=== PATIENT | female | born 1985 | race Caucasian/White ===

== ENCOUNTER 2016-10-30 08:45 | Day surgery (SDC) | payer BC ==
[~2016-10-30 08:45] MED LIST: IV START KIT ONE; LACTATED RINGERS 1,000 ML ONE
[2016-10-30] MEDS ORDERED: MIDAZOLAM HCL 1 MG/ML 2ML VIAL ONE (10:17)
[2016-10-30] MEDS ORDERED: PROPOFOL 20 ML IV ONE (10:17)
[2016-10-30] MEDS ORDERED: ONDANSETRON 4 MG/2ML 2 ML VIAL ONE (10:18)
[2016-10-30] MEDS ORDERED: FENTANYL 100 MCG/2 ML VIAL ONE ×2 (10:18→11:15)
[2016-10-30] MEDS ORDERED: DEXAMETHASONE SOD PHOS 4 MG/1 ML VIAL ONE (10:18)
[2016-10-30] MEDS ORDERED: LABETALOL HCL 5 MG/ML 20ML VIAL IV PRN (10:41)
[2016-10-30] MEDS ORDERED: HYDRALAZINE HCL 20 MG/1 ML VIAL IV PRN (10:41)
[2016-10-30] MEDS ORDERED: NALOXONE HCL 0.4 MG/ML VIAL IV PRN (10:41)
[2016-10-30] MEDS ORDERED: MEPERIDINE 25 MG/ML SYRINGE IV PRN (10:41)
[2016-10-30] MEDS ORDERED: ONDANSETRON 4 MG/2ML 2 ML VIAL IV PRN ×2 (10:41→12:05)
[2016-10-30] MEDS ORDERED: FENTANYL 100 MCG/2 ML VIAL IV PRN (10:41)
[2016-10-30] MEDS ORDERED: HYDROMORPHONE HCL 1 MG/ML SYRINGE IV PRN (10:41)
[2016-10-30] MEDS ORDERED: ATROPINE SULFATE 0.4 MG/1 ML VIAL IV PRN (10:41)
[2016-10-30] MEDS ORDERED: PROMETHAZINE HCL 25 MG/ML VIAL IM PRN (10:41)
[2016-10-30] MEDS ORDERED: LACTATED RINGERS 1,000 ML IV SCH ×2 (10:45→12:05)
[2016-10-30] MEDS ORDERED: CEFAZOLIN SODIUM 1,000 MG VIAL ONE (11:07)
[2016-10-30] MEDS ORDERED: LACTATED RINGERS 1,000 ML ONE (11:45)
[2016-10-30] MEDS ORDERED: MISOPROSTOL 200 MCG TABLET ONE (11:46)
[2016-10-30] MEDS ORDERED: KETOROLAC TROMETHAMINE 30 MG/ML 1 ML VIAL IV PRN (12:05)
[2016-10-30] MEDS ORDERED: OXYCODONE/ACETAMINOPHEN 5/325 MG TABLET PO PRN (12:05)
[2016-10-30] MEDS ORDERED: OXYCODONE/ACETAMINOPHEN 5/325 MG TABLET ONE (12:33)
[2016-10-30 12:36] LABS: HEMATOCRIT 27.8 % (37.0-47.0); HEMOGLOBIN 9.7 gm/l (12.0-16.0)
--- NOTE | 2016-10-30 16:41 | HP ---
JOSEPHINE JOHN [id number] DATE OF PROCEDURE: 10/30/2016 PREOPERATIVE DIAGNOSIS: Missed at 9 weeks of gestation. PROCEDURE: SUCTION DILATATION AND CURETTAGE. SURGEON: Dr. Albaro Blank HISTORY OF PRESENT ILLNESS: The patient is a 30-year-old G-2, P-1 who presented for initial obstetric visit, however, upon initial evaluation was noted to have a nine week gestation with no heart activity. This was confirmed with ultrasound at diagnostic imaging. Ultrasound showed a nine week plus one day gestation by [id number] length. The patient presents for suction dilatation and curettage today. PAST OBSTETRICAL HISTORY: The patient had one normal vaginal delivery. PAST MEDICAL HISTORY: Negative. PAST SURGICAL HISTORY: [place] teeth. ALLERGIES: The patient has allergy to dicloxacillin, however, can tolerate Keflex. PHYSICAL EXAMINATION: GENERAL: The patient is in no apparent distress. HEART: Regular rate and rhythm. LUNGS: Clear to auscultation bilaterally. ABDOMEN: Nontender and nondistended. Uterus is anteverted and consistent with nine weeks gestation. Cervix is closed. EXTREMITIES: Exam is normal. ASSESSMENT/PLAN: This is a 30-year-old with nine weeks gestation and missed . The patient opts for suction dilatation and curettage. The procedure, indications and risks have been reviewed, including the risks of bleeding, infection and uterine perforation. Preoperative instructions and postoperative expectations have been reviewed. The patient's blood type is confirmed A+.
--- NOTE | 2016-10-31 00:32 | OP ---
JOSEPHINE JOHN [id number] DATE OF PROCEDURE: 10/30/2016 PREOPERATIVE DIAGNOSIS: Missed at nine weeks. POSTOPERATIVE DIAGNOSIS: Missed at nine weeks. PROCEDURE: Suction dilation and curettage. SURGEON: Dr. Albaro Blank ANESTHESIA: General. ESTIMATED BLOOD LOSS: 400 cc OPERATIVE FINDINGS: Include products of conception and retroverted nine week size uterus. COMPLICATIONS: None. OPERATIVE COURSE: The patient is taken to the OR and placed under general anesthesia. The patient was placed in lithotomy and prepped and draped in a sterile fashion. The bladder was emptied with a straight catheter. A weighted speculum was then placed and the cervix was grasped with a single-tooth tenaculum. The cervix was sequentially dilated to accommodate a #9 suction curette. The #9 straight curette was then placed into the fundus and using a rotating motion was slowly withdrawn. This was able to withdraw some tissue at this time. Subsequently, a second curettage did not retrieve any additional tissue. The uterus was then gently curetted, and no more tissue was withdrawn at this time, and there is no evidence of perforation. The second round of suction curettage was then performed and the uterus was gently massaged. At this point, another round of gentle sharp curettage did not retrieve any further tissue, and again no evidence of uterine perforation. There was a laceration of the anterior cervix from the tenaculum which was repaired with 3-0 Vicryl. The uterus was massaged and 600 mcg of misoprostol was then placed per rectum for postoperative bleeding, with good effect. The patient was then recovered from anesthesia and taken to the recovery room in stable condition.
--- NOTE | 2016-11-03 09:40 | SURGPATH ---
[facility] [address] [place] [id number] Patient Name: JOSEPHINE JOHN MR#: [id number] : 1985 Gender: F Specimen #: [id number] Collected: 10/30/2016 Received: 11/02/2016 Reported: 11/03/2016 Submitting Phys: SANGEETHA MCDONALD Copy To Phys: [facility] - HIM Clinical History / Pre-Operative Diagnosis: Missed AB Specimen Source / Surgical Procedure Performed: Uterine contents Interpretation: UTERINE CONTENTS, MISSED AB: - PRODUCTS OF CONCEPTION Electronically Signed Out Elmo Case M.D. Gross Description: The specimen is received in a formalin filled container labeled with the patient's name and "uterine contents". An aggregate of villegas tissue admixed with hemorrhagic material is 8.0 x 7.0 x 4.0 cm and includes spongy, membranous, placenta-like tissue. No tissue is present. Three business services representative sections are submitted in one cassette. Corby Benjamin, PSheilaASheila Microscopic Description: Microscopic performed. 1: 17899 O02.1
== END 2016-10-30 13:55 | disposition home or self-care (01) ==
LOC: SDC 08:45
PROVIDERS: ATTEND Obstetrics & Gynecology
PROC: 10D17ZZ Extraction of Products of Conception, Retained, Via Natural or Artificial Opening (ICD-10-PCS; principal; 2016-10-30)
DX: O02.1 Missed abortion (principal); Z3A.09 9 weeks gestation of pregnancy
CPT/HCPCS: 85014; 85018; 36415; 59820; J0690; J3010 ×2; J1100; A9270 ×2; J2250; J2405; J7120 ×2

== ENCOUNTER 2017-01-01 20:13 | Emergency (ER) | payer BC ==
[2017-01-01] MEDS ORDERED: SODIUM CHLORIDE 0.9% 1,000 ML ONE (20:47)
[2017-01-01 21:29] LABS: ABSOLUTE NEUTROPHIL COUNT 4.6 K/mm3 (1.8-7.7); BASO % 0.5 % (0.2-1.0); EOS % 0.5 % (0.9-2.9); HEMATOCRIT 36.7 % (37.0-47.0); HEMOGLOBIN 11.8 gm/l (12.0-16.0); IMM NEUT% 0.3 % (0-1); LYMPH # 2.3 (1.0-4.8); LYMPH % 29.6 % (15-45); MEAN CELL VOLUME 90.4 fl (81.0-99.0); MEAN CORPUSCULAR HEMOGLOBIN 29.1 pg (27.0-31.0); MEAN CORPUSCULAR HGB CONC 32.2 g/dl (33.0-37.0); MEAN PLATELET VOLUME 8.7 fl (7.4-10.4); MONO # 0.9 (0.0-0.8); MONO % 11.4 % (4-12); NEUT % 57.7 % (43-75); PLATELET COUNT 308 K/mm3 (130-400); RED CELL DISTRIBUTION WIDTH 11.7 % (11.5-14.5)
== END 2017-01-01 22:34 | disposition home or self-care (01) ==
LOC: ED 20:13 → SUPCPDRO 20:13 → ED 22:34
DX: N93.9 Abnormal uterine and vaginal bleeding, unspecified (principal); N92.0 Excessive and frequent menstruation with regular cycle
CPT/HCPCS: 84703; 85025; 86901; 99283 ×2; 96360; 96361; J7030